=== PATIENT | male | born 1995 | race Caucasian/White ===

== ENCOUNTER 2020-07-27 18:07 | Emergency (ER) | payer BC ==
[~2020-07-27] VITALS: Ht 182.9 cm; Wt 65.8 kg
[2020-07-27 18:13] VITALS: BP 127/85
--- NOTE | 2020-07-27 18:54 | NUR ---
Patient discharged with v/s stable. Written and verbal after care instructions given and explained. Patient alert, oriented and verbalized understanding of instructions. Ambulatory with steady gait. All questions addressed prior to discharge. ID band removed. Patient advised to follow up with PMD. Rx of Penicillin and Prednisone given. Patient educated on indication of medication including possible reaction and side effects. Opportunity to ask questions provided and answered. Covid swab collected and sent to the lab. No nursing care provided in our ER.
== END 2020-07-27 18:54 | disposition home or self-care (01) ==
LOC: MED 18:07
DX: J02.9 Acute pharyngitis, unspecified (principal); Z20.828 Contact with and (suspected) exposure to other viral communicable diseases
CPT/HCPCS: 99283; U0003

== ENCOUNTER 2020-11-06 11:21 | Emergency (ER) | payer BC ==
[~2020-11-06] VITALS: Ht 180.3 cm; Wt 65.8 kg
[2020-11-06 11:29] VITALS: BP 133/68
--- NOTE | 2020-11-06 11:32 | NUR ---
PT AMBULATED TO BED 1.
[2020-11-06] MEDS ORDERED: KETOROLAC 60 MG/2 ML VIAL IM ONE (11:40)
[2020-11-06] MEDS ORDERED: ACETAMINOPHEN EXTRA STRENGTH 500 MG TAB PO ONE (11:40)
--- NOTE | 2020-11-06 11:52 | NUR ---
25 Y/O MALE C/O SUNJECTIVE FEVER X2DAYS. PT STATES HE HAS BODY ACHES, CHILL, DENIES ANY SOB/COUGH. PATIENT TOOK 1G OF TYLENOL ABOUT 5 HOURS AGO. DENIES ANY N/V, MINOR UPSET STOMACH. ORAL TEMP IN TRIAGE 101.5F, DR. YEN MADE AWARE. DENIES PMH NKA
--- NOTE | 2020-11-06 13:23 | NUR ---
NORMA FAYE AT PT BEDSIDE FOR FURTHER EVALUATION.
--- NOTE | 2020-11-06 13:35 | NUR ---
Collected meño bustillos, meño gudino gave to clinical laboratory medical director.
--- NOTE | 2020-11-06 13:36 | NUR ---
dictaphone technician at pt bedside.
[2020-11-06] MEDS ORDERED: AZIT250T3 PO (14:10)
[2020-11-06 14:21] VITALS: BP 133/68
--- NOTE | 2020-11-06 14:21 | NUR ---
Patient discharged with v/s stable. Written and verbal after care instructions given and explained. Patient alert, oriented and verbalized understanding of instructions. Ambulatory with steady gait. All questions addressed prior to discharge. ID band removed. Patient advised to follow up with PMD. Rx of ZITHRO 1 PACKET PO DAILY given. Patient educated on indication of medication including possible reaction and side effects. Opportunity to ask questions provided and answered.
== END 2020-11-06 14:21 | disposition home or self-care (01) ==
LOC: MED 11:21
DX: R50.9 Fever, unspecified (principal); M79.10 Myalgia, unspecified site; R10.9 Unspecified abdominal pain; Z20.822 Contact with and (suspected) exposure to COVID-19
CPT/HCPCS: 71045; 87426; 96372; 99284; J1885; U0003